=== PATIENT | female | born 1980 | race Caucasian/White ===

== ENCOUNTER 2017-04-05 20:38 | Inpatient (IN) | payer MEDICARE, MEDICAID ==
[~2017-04-05] VITALS: Ht 170.2 cm; Wt 75.1 kg
[~2017-04-05 20:38] MED LIST: INDERAL; TOPAMAX; TRAZODONE
[2017-04-05 23:56] VITALS: BP 141/99
[2017-04-06] MEDS ORDERED: ZOLPIDEM TARTRATE 10 MG TABLET PO PRN (00:15)
[2017-04-06] MEDS ORDERED: LORazepam 2 MG TABLET PO PRN (00:15)
[2017-04-06] MEDS ORDERED: HALOPERIDOL 5 MG TABLET PO PRN (00:15)
[2017-04-06 01:35] VITALS: BP 140/99
[2017-04-06] MEDS ORDERED: VENL-193 PO (01:39)
[2017-04-06] MEDS ORDERED: DISU250 PO (01:39)
[2017-04-06] MEDS ORDERED: TRAZ-147 PO (01:39)
[2017-04-06] MEDS ORDERED: PROP10TA73 PO (01:39)
[2017-04-06] MEDS ORDERED: PALI234D IM (01:39)
[2017-04-06] MEDS ORDERED: MELA3TAB66 PO (01:39)
[2017-04-06] MEDS ORDERED: INFLUENZA VIRUS VACCINE QVS 2017-18 (3YR+)/PF 60 MCG/0.5 ML SYRINGE IM ONE (03:30)
[2017-04-06] MEDS ORDERED: PNEUMOCOCCAL VACCINE POLYVALENT 0.5 ML VIAL [PPSV23] IM ONE (03:30)
[2017-04-06] MEDS ORDERED: IBUPROFEN 400 MG TABLET PO PRN ×2 (06:30→20:30)
[2017-04-06] MEDS ORDERED: ACETAMINOPHEN 325 MG TABLET PO PRN ×2 (06:30→20:30)
[2017-04-06] MEDS ORDERED: PROPRANOLOL HCL 10 MG TABLET PO SCH (09:00)
[2017-04-06] MEDS ORDERED: TOPI25 PO (12:52)
[2017-04-06] MEDS ORDERED: VENL-68 PO (12:52)
[2017-04-06] MEDS ORDERED: PROP20 PO (12:52)
[2017-04-06 16:24] VITALS: BP 124/98
[2017-04-06] MEDS: PROPRANOLOL HCL 20 MG TABLET PO SCH (16:29)
[2017-04-06] MEDS: TraZODone HCL 100 MG TABLET PO SCH (20:44)
[2017-04-07 06:54] VITALS: BP 132/85
[2017-04-07 07:47] LABS: BASOPHILS % (AUTO) 0.7 % (0.0-2.0); EOSINOPHILS % (AUTO) 3.8 % (1.0-6.0); HEMOGLOBIN 14.5 g/dL (12.0-16.0); LYMPHOCYTES # (AUTO) 2.9 K/uL (1.0-4.8); LYMPHOCYTES % (AUTO) 30.5 % (22.0-44.0); MEAN CORPUSCULAR HEMOGLOBIN 34.3 pg (26.0-34.0); MEAN CORPUSCULAR HGB CONC 33.8 G/dL (31.0-37.0); MEAN CORPUSCULAR VOLUME 101 fL (80-100); MONOCYTES # (AUTO) 0.8 K/uL (0.1-1.0); MONOCYTES % (AUTO) 8.3 % (2.0-9.0); NEUTROPHILS # (AUTO) 5.4 K/uL (1.8-7.7); NEUTROPHILS % (AUTO) 56.7 % (40.0-70.0); PLATELET COUNT (AUTO) 241 K/uL (150-450); RED BLOOD CELL COUNT(AUTO) 4.24 MIL/uL (4.00-5.20)
[2017-04-07 08:35] LABS: ALANINE AMINOTRANSFERASE 23 U/L (12-78); ALBUMIN 3.9 g/dL (3.4-5.0); ALKALINE PHOSPHATASE 73 U/L (46-116); ANION GAP 6 mmol/L (8-16); ASPARTATE AMINOTRANSFERASE 17 U/L (15-37); BILIRUBIN,TOTAL 0.4 mg/dL (0.1-1.0); CALCIUM, TOTAL 9.3 mg/dL (8.8-10.5); CARBON DIOXIDE 30 mmol/L (22-29); CHLORIDE 102 mmol/L (98-107); CHOL/HDL RATIO 2.3 (3.9-5.7); CHOLESTEROL 232 mg/dL (131-200); CREATININE 1.03 mg/dL (0.60-1.30); FREE T4 (FREE THYROXINE) 0.91 ng/dL (0.76-1.46); GLOMERULAR FILTR. RATE CALC 60 mL/min (>60); GLUCOSE,RANDOM 97 mg/dL (70-110); HCG,QUANTITATIVE < 1 mIU/mL (0-6); HDL CHOLESTEROL 102 mg/dL (40-60); LDL CHOL (CALC.) 117 mg/dL (0-130); POTASSIUM 4.1 mmol/L (3.5-5.1); SODIUM SERUM 138 mmol/L (136-145); THYROID STIMULATING HORMONE 0.66 uIU/mL (0.36-3.74); TOTAL PROTEIN, SERUM 7.6 g/dL (6.4-8.2); TRIGLYCERIDES 64 mg/dL (15-150); UREA NITROGEN, BLOOD 12 mg/dL (7-18)
[2017-04-07] MEDS: PROPRANOLOL HCL 20 MG TABLET PO SCH ×2 (08:42→16:43)
[2017-04-07] MEDS: VENLAFAXINE HCL 75 MG ER CAPSULE PO SCH (08:42)
[2017-04-07 08:45] VITALS: BP 125/83
[2017-04-07 16:32] VITALS: BP 119/76
[2017-04-07] MEDS: TraZODone HCL 100 MG TABLET PO SCH (20:12)
[2017-04-08 06:27] VITALS: BP 116/79
[2017-04-08] MEDS: PROPRANOLOL HCL 20 MG TABLET PO SCH ×2 (08:11→16:21)
[2017-04-08] MEDS: VENLAFAXINE HCL 75 MG ER CAPSULE PO SCH (08:11)
[2017-04-08 08:13] VITALS: BP 100/75
[2017-04-08 16:16] VITALS: BP 110/77
[2017-04-08] MEDS ORDERED: DOCUSATE SODIUM 100 MG CAPSULE PO PRN (20:15)
[2017-04-08] MEDS: TraZODone HCL 100 MG TABLET PO SCH (20:33)
[2017-04-09 08:43] VITALS: BP 106/78
[2017-04-09] MEDS: VENLAFAXINE HCL 75 MG ER CAPSULE PO SCH (09:08)
[2017-04-09] MEDS: PROPRANOLOL HCL 20 MG TABLET PO SCH ×2 (09:08→16:20)
[2017-04-09 16:24] VITALS: BP 109/76
[2017-04-09] MEDS: TraZODone HCL 100 MG TABLET PO SCH (20:12)
[2017-04-10 06:54] VITALS: BP 111/78
[2017-04-10 08:38] VITALS: BP 128/72
[2017-04-10] MEDS: PROPRANOLOL HCL 20 MG TABLET PO SCH ×2 (09:23→16:44)
[2017-04-10] MEDS: VENLAFAXINE HCL 75 MG ER CAPSULE PO SCH (09:23)
[2017-04-10 16:00] VITALS: BP 114/78
[2017-04-10] MEDS: TraZODone HCL 100 MG TABLET PO SCH (20:22)
[2017-04-11 02:57] VITALS: BP 121/76
[2017-04-11 08:48] VITALS: BP 124/88
[2017-04-11] MEDS: VENLAFAXINE HCL 75 MG ER CAPSULE PO SCH (08:52)
[2017-04-11] MEDS: PROPRANOLOL HCL 20 MG TABLET PO SCH ×2 (08:52→16:28)
[2017-04-11 16:00] VITALS: BP 119/75
[2017-04-11] MEDS: TraZODone HCL 100 MG TABLET PO SCH (20:40)
[2017-04-12 07:17] VITALS: BP 125/80
[2017-04-12 08:28] VITALS: BP 108/73
[2017-04-12] MEDS: VENLAFAXINE HCL 75 MG ER CAPSULE PO SCH (10:10)
[2017-04-12] MEDS: PROPRANOLOL HCL 20 MG TABLET PO SCH ×2 (10:10→16:24)
[2017-04-12 16:17] VITALS: BP 116/76
[2017-04-12] MEDS: TraZODone HCL 100 MG TABLET PO SCH (20:37)
[2017-04-13 07:07] VITALS: BP 118/75
[2017-04-13] MEDS: PROPRANOLOL HCL 20 MG TABLET PO SCH ×2 (08:11→16:16)
[2017-04-13] MEDS: VENLAFAXINE HCL 75 MG ER CAPSULE PO SCH (08:11)
[2017-04-13 08:45] VITALS: BP 117/73
[2017-04-13 16:24] VITALS: BP 116/78
[2017-04-13] MEDS: TraZODone HCL 100 MG TABLET PO SCH (21:15)
[2017-04-14 06:20] VITALS: BP 109/74
[2017-04-14 08:02] VITALS: BP 118/75
[2017-04-14] MEDS: VENLAFAXINE HCL 75 MG ER CAPSULE PO SCH (08:33)
[2017-04-14] MEDS: PROPRANOLOL HCL 20 MG TABLET PO SCH ×2 (09:00→16:49)
[2017-04-14 16:11] VITALS: BP 113/78
[2017-04-14] MEDS: TraZODone HCL 100 MG TABLET PO SCH (20:41)
[2017-04-15 00:06] VITALS: BP 101/62
[2017-04-15 08:06] VITALS: BP 113/76
[2017-04-15] MEDS: VENLAFAXINE HCL 75 MG ER CAPSULE PO SCH (08:07)
[2017-04-15] MEDS: PROPRANOLOL HCL 20 MG TABLET PO SCH (08:07)
[2017-04-15] MEDS ORDERED: PALIPERIDONE PALMITATE 156 MG/ML SYRINGE IM ONE (09:00)
== END 2017-04-15 13:55 | disposition home or self-care (01) | DRG 885 ==
LOC: EDSTATUS 20:42 → B3A 04-06 00:10 → B2S 04-13 16:34
PROVIDERS: ADMIT Psychiatry & Neurology Psychiatry; ATTEND Psychiatry & Neurology Psychiatry
DX: F31.5 Bipolar disorder, current episode depressed, severe, with psychotic features (principal); R45.851 Suicidal ideations; R00.0 Tachycardia, unspecified; E78.5 Hyperlipidemia, unspecified; F10.10 Alcohol abuse, uncomplicated; F43.10 Post-traumatic stress disorder, unspecified; I10 Essential (primary) hypertension; F19.10 Other psychoactive substance abuse, uncomplicated; K59.00 Constipation, unspecified; Z91.5 Personal history of self-harm
CPT/HCPCS: 83036; 84439; 84443; 90471